=== PATIENT | male | born 1995 | race American Indian/Alaskan Native ===

== ENCOUNTER 2019-10-30 05:51 | Emergency (ER) | payer SELFPAY ==
[2019-10-30] MEDS ORDERED: LIDOCAINE 1%/EPINEPHRINE 1:100,000 VIAL (20 ML) INFILTRATI ONE (06:25)
[2019-10-30 06:38] LABS: Hematocrit 43.1 % (35.5-45.6); Hemoglobin 14.2 gm/dl (11.8-15.2); Mean Corpuscular HGB Conc 33 % (32-34); Mean Corpuscular Volume 88 fl (84-94); Platelet Count 359 K/mm3 (140-440); Red Blood Count 4.88 M/mm3 (3.65-5.03); Red Cell Distribution Width 12.4 % (13.2-15.2)
[2019-10-30 06:47] LABS: BUN/Creatinine Ratio 14; Blood Urea Nitrogen 20 mg/dL (9-20); Calcium 9.2 mg/dL (8.4-10.2)
[2019-10-30 06:48] LABS: Alanine Aminotransferase 58 units/L (7-56); Albumin 4.8 g/dL (3.9-5); Hemolysis Index 12
[2019-10-30 07:16] LABS: Anisocytosis 1+; Basophils % (Manual) 0 % (0.0-1.8); Eosinophils % (Manual) 0 % (0.0-4.3); Monocytes % (Manual) 6.5 % (0.0-7.3); Platelet Estimate Consistent w Auto; Total Cells Counted 200
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
[2019-10-30] MEDS ORDERED: SODIUM CHLORIDE IRRI 500 ML 500 ML IR ONE (08:18)
[2019-10-30] MEDS ORDERED: HYDROGEN PEROXIDE 118 ML SOLUTION ONE (08:31)
[2019-10-30] MEDS ORDERED: ZIPRASIDONE 20 MG CAP PO ONE (09:28)
[2019-10-30] MEDS ORDERED: D5W/0.9% NACL 1,000 ML IV SCH (10:00)
[2019-10-30] MEDS: ZIPRASIDONE 20 MG CAP PO SCH ×2 (10:04→21:37)
[2019-10-30] MEDS ORDERED: SODIUM CHLORIDE 0.9% IRR 500 ML BOTTLE IR ONE (10:12)
[2019-10-30] MEDS ORDERED: HYDROGEN PEROXIDE 118 ML SOLUTION TP ONE (10:13)
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
[2019-10-30] MEDS: traZODone 50 MG TAB PO SCH (21:37)
[2019-10-31] MEDS: MELATONIN 5 MG TAB PO PRN (01:16)
[2019-10-31 08:09] LABS: Hematocrit 40.9 % (35.5-45.6); Hemoglobin 13.5 gm/dl (11.8-15.2); Mean Corpuscular HGB Conc 33 % (32-34); Mean Corpuscular Volume 88 fl (84-94); Platelet Count 312 K/mm3 (140-440); Red Blood Count 4.65 M/mm3 (3.65-5.03); Red Cell Distribution Width 12.3 % (13.2-15.2)
[2019-10-31] MEDS: ZIPRASIDONE 20 MG CAP PO SCH (11:16)
--- NOTE | 2019-10-31 13:25 | Progress Note ---
Subjective - Reason for Consult Consult date: 10/31/19 Reason for consult: Manage mental health - Chief Complaint Chief complaint: Reviewed medical record and discussed with nursing staff patient's progress. The nursing note states the patient pt AAOx3, calm and cooperative. requesting activities. Coloring books, and crayon's given. pt in NAD During my interview with the patient today he was sitting in a chair in the hallway. He is a/o x 3. He is calm and cooperative. He is quiet and speaking in a low tone. He has a coloring book and says "as long as I color in this I am calm." He says he feels "fine." The patient says he also feels "somewhat strange because he feels like the New Year is too long." He says his night was "good." He denies SI/HI. He says he still "hears the voices but they are not saying anything negative. They are just telling me to color." He denies any visual hallucinations or paranoia. The patient says "I feel fine. Just need to take a shower." He says his appetite is "pretty good." The patient says he feels safe going home and he can "go home with his mother and brother." If he is discharged. ROS Constitutional:Negative for weight loss ENT: Negative for stridor Respiratory: Negative for cough All systems reviewed and are negative Mental Status Exam Appearance: Appropriately dressed. Scratches over upper body. Fair eye contact Behavior: calm and cooperative. Mood: "fine" Affect: Restricted Thought Process: Goal directed Speech: low tone Thought Content Harmfulness: Denies Hallucinations: Auditory Delusions: None elicited Consciousness: Alert Cognition/Memory: Fair Insight/Judgment: Fair Assessment Paranoid Schizophrenia Recommendations: Continue 1013 Start Risperidone 1mg po BID D/C po Geodon Start Geodon 10mg IM q4h prn agitation MEDICAL: Per primary team DELIRIUM PRECAUTIONS: Please TURN OFF THE TV, re-orient patient frequently, keep lights on during the day, and minimize and opiates as these medications could worsen patient's confusion. 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 Transfer to appropriate facility once medically cleared. Will reassess the patient's status tomorrow if he has not been transferred. LEGAL STATUS: Involuntary FOLLOW-UP: Will follow until transferred Mental Status Exam - Vital signs Last Vital Signs Temp 98.5 F 10/31/19 08:05 Pulse 73 10/31/19 08:05 Resp 18 10/31/19 08:05 BP 132/73 10/31/19 08:05 Pulse Ox 99 10/31/19 08:05
[2019-10-31] MEDS ORDERED: ZIPRASIDONE MESYLATE 20 MG VIAL IM PRN (13:41)
[2019-10-31] MEDS: traZODone 50 MG TAB PO SCH (23:25)
[2019-10-31] MEDS: risperiDONE 0.25 MG TAB PO SCH (23:25)
[2019-11-01] MEDS: risperiDONE 0.25 MG TAB PO SCH ×2 (11:00→23:08)
--- NOTE | 2019-11-01 13:35 | Progress Note ---
Subjective - Reason for Consult Consult date: 11/01/19 Reason for consult: psychiatric care - Chief Complaint Chief complaint: Reviewed medical record and discussed with nursing staff patient's progress. pt sitting up in bed noticeably tearful. Tells nurse, "I'm in a stephen with depression, and I'm losing." Prn medication given to help calm the patient so he could sleep. During my interview with the patient today he reports trouble sleeping, but eati ng well. He states, "I am still hearing voices,telling me to stay in bed and don't get out".He reports that he doesn't hear them when he listen to his music. He denies SI/HI. Able to make needs known. Constitutional:Negative for weight loss ENT: Negative for stridor Respiratory: Negative for cough All systems reviewed and are negative Mental Status Exam Appearance: AAOX3. Scratches over upper body. Behavior: calm and cooperative. Mood: " OK" Affect: fLAT Thought Process: Goal directed Speech: low tone Thought Content Harmfulness: Denies Hallucinations: Auditory Delusions: None elicited Consciousness: Alert Cognition/Memory: Fair Insight/Judgment:limited Assessment paranoia, schizophrenia Recommendations: Continue 1013 continue Risperidone 1mg po BID continue Geodon 10mg IM q4h prn agitation MEDICAL: Per primary team DELIRIUM PRECAUTIONS: Please TURN OFF THE TV, re-orient patient frequently, keep lights on during the day, and minimize and opiates as these medications could worsen patient's confusion. 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 Transfer to appropriate facility once medically cleared. Will reassess the patient's status tomorrow if he has not been transferred. LEGAL STATUS: Involuntary FOLLOW-UP: Will follow until transferred Mental Status Exam - Vital signs Last Vital Signs Temp 98.7 F 11/01/19 10:23 Pulse 84 11/01/19 10:23 Resp 16 11/01/19 10:23 BP 95/56 11/01/19 10:23 Pulse Ox 98 11/01/19 10:23
[2019-11-01] MEDS ORDERED: LORazepam 2 MG/ML VIAL ONE (21:58)
[2019-11-01] MEDS ORDERED: LORazepam 2 MG/ML VIAL IM ONE (22:10)
[2019-11-01] MEDS: traZODone 50 MG TAB PO SCH (23:08)
[2019-11-01] MEDS: MELATONIN 5 MG TAB PO PRN (23:08)
[2019-11-02] MEDS: risperiDONE 0.25 MG TAB PO SCH ×2 (10:30→21:44)
[2019-11-02] MEDS: traZODone 50 MG TAB PO SCH (21:44)
[2019-11-02] MEDS: MELATONIN 5 MG TAB PO PRN (21:44)
--- NOTE | 2019-11-03 07:13 | Progress Note ---
Subjective - Reason for Consult Consult date: 11/02/19 Reason for consult: psychiatric assessment - Chief Complaint Chief complaint: Reviewed medical record and discussed with nursing staff patient's progress. pt resting quietly on recliner, resp even and non labored, no acute distress noted, no behaviors or s/s of self harm noted, able to make needs known, ambulates as needed to restroom. During my interview with the patient today he is aaox4, he states, I am aware of what happen and just want to go home, it wasn't my intention to break the glass"., and I have time to think about it, I am not suicidal". he denies HI/AVH. The patient is agree to outpatient f/u and medication management. The Patient reported having a good support system at home.The patient contract for safety. Constitutional:Negative for weight loss ENT: Negative for stridor Respiratory: Negative for cough All systems reviewed and are negative Mental Status Exam Appearance: AAOX4. Scratches over upper body. Behavior: calm and cooperative. Mood: " OK" Affect: bright Thought Process: Goal directed Speech: normal Thought Content Harmfulness: Denies Hallucinations: denies Delusions: None Consciousness: Alert Cognition/Memory: Fair Insight/Judgment: fair Assessment paranoia, schizophrenia Recommendations: Continue 1013 continue Risperidone 1mg po BID continue Geodon 10mg IM q4h prn agitation MEDICAL: Per primary team DELIRIUM PRECAUTIONS: Please TURN OFF THE TV, re-orient patient frequently, keep lights on during the day, and minimize and opiates as these medications could worsen patient's confusion. 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 Transfer to appropriate facility once medically cleared. Will reassess the patient's status tomorrow if he has not been transferred. LEGAL STATUS: Involuntary FOLLOW-UP: Will follow until transferred Mental Status Exam - Vital signs Last Vital Signs Temp 97.9 F 11/03/19 01:56 Pulse 77 11/03/19 01:56 Resp 16 11/03/19 01:56 BP 111/81 11/03/19 01:56 Pulse Ox 98 11/03/19 01:56
[2019-11-03 07:56] VITALS: BP 131/76
[2019-11-03] MEDS: risperiDONE 0.25 MG TAB PO SCH (11:04)
--- NOTE | 2019-11-03 14:24 | Progress Note ---
Subjective - Reason for Consult Consult date: 11/03/19 Reason for consult: psychiatric assessment - Chief Complaint Chief complaint: Reviewed medical record and discussed with nursing staff patient's progress. notes indicated no s/s of self harm noted, able to make needs known, ambulates as needed to restroom. During my interview with the patient today he is aaox4, he states, "I am not suicidal". He denies HI/AVH. The patient is agree to outpatient f/u and medication management. The Patient reported having a good support system at home, The patient contract for safety BY verbally telling me what he would do, he states, " I would call 911, call friend or family or go to the nearest ED. Constitutional:Negative for weight loss ENT: Negative for stridor Respiratory: Negative for cough All systems reviewed and are negative Mental Status Exam Appearance: AAOX4. Scratches over upper body. Behavior: calm and cooperative. 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 At this time I do believe that the patient has decision- making capacity. LEGAL STATUS: VOLUNTARY FOLLOW-UP: SIGN OFF Mental Status Exam - Vital signs Last Vital Signs Temp 98.7 F 11/03/19 07:54 Pulse 99 H 11/03/19 07:54 Resp 16 11/03/19 01:56 BP 131/76 11/03/19 07:54 Pulse Ox 100 11/03/19 07:54
== END 2019-11-03 15:05 | disposition home or self-care (01) ==
LOC: ED 05:51
DX: S21.212A Laceration without foreign body of left back wall of thorax without penetration into thoracic cavity, initial encounter (principal); F29 Unspecified psychosis not due to a substance or known physiological condition; F31.9 Bipolar disorder, unspecified; F12.10 Cannabis abuse, uncomplicated; N34.2 Other urethritis; F20.9 Schizophrenia, unspecified; Z88.0 Allergy status to penicillin; Z91.013 Allergy to seafood; X83.8XXA Intentional self-harm by other specified means, initial encounter; Y93.89 Activity, other specified; Y92.89 Other specified places as the place of occurrence of the external cause; Y99.8 Other external cause status
CPT/HCPCS: 12001; 36415; 70450; 70486; 71260; 72125; 74177; 80053; 85007; 85025; 85027; 86850; 86900; 86901; 96372; 99285; J2060; J3486; J7042; Q9967; 80320; G0480